=== PATIENT | male | born 1960 | race Caucasian/White ===

== ENCOUNTER 2020-07-21 10:55 | Emergency (ER) | payer MEDICAID ==
[~2020-07-21] VITALS: Ht 152.4 cm; Wt 65.3 kg
[2020-07-21 11:12] VITALS: Ht 152.4 cm; Wt 65.3 kg
[2020-07-21 11:27] VITALS: BP 154/81
== END 2020-07-21 12:48 | disposition home or self-care (01) ==
LOC: ED 10:55
DX: H26.9 Unspecified cataract (principal); H11.001 Unspecified pterygium of right eye